=== PATIENT | female | born 1945 | race Caucasian/White ===

== ENCOUNTER 2016-12-22 11:28 | Emergency (ER) | payer OTHER ==
[~2016-12-22] VITALS: Ht 165.1 cm; Wt 68.0 kg
--- NOTE | 2016-12-22 12:25 | ED NECK/BACK PAIN COMPLAINT ---
History of Present Illness General Chief Complaint: General Adult Stated Complaint: TEST FOR LYME DISEASE Source: patient Exam Limitations: no limitations Vital Signs & Intake/Output Vital Signs & Intake/Output Vital Signs Date Time Temp Pulse Resp B/P B/P Pulse O2 O2 Flow FiO2 Mean Ox Delivery Rate 12/22 1135 98.6 85 16 182/107 95 Room Air Allergies Coded Allergies: MDX - PCN (penicillin) (PCN (PENICILLIN)) (SWELLING 05/24/16) Triage Note: 71 Y/O FEMALE STATES "MY DOCTOR TOLD ME TO COME HERE FOR BLOODWORK AND MEDICATION". STATES SHE WAS DIAGNOSED WITH LYME DISEASE 3-4 YEARS AGO AND HAS BEEN HAVING SYMPTOMS SINCE YESTERDAY: "HEADACHE, MY JOINTS HURT, MY BODY ACHES, I HAVE THE LYME FOG". TOOK ADVIL THIS AM WITH NO RELIEF. Triage Nurses Notes Reviewed? yes HPI: Patient presents for concern of Lyme disease symptoms. Patient states that she has been having neck pain and "brain fogginess" for an unclear time course. Patient states that she was treated years ago for Lyme disease but feels that her current symptoms are similar to symptoms she suffered previously. Patient has had symptom episodes annually but denies any known tick bites since her prior treatment. Past History Travel History Traveled to [place] past 21 day No Medical History Any Pertinent Medical History? 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 No Review of Systems Review of Systems Constitutional: Reports: no symptoms. Eyes: Reports: no symptoms. Ears, Nose, Throat, Mouth: Reports: no symptoms. Respiratory: Reports: no symptoms. Cardiovascular: Reports: no symptoms. Gastrointestinal/Abdominal: Reports: no symptoms. Musculoskeletal: Reports: see HPI. Skin: Reports: no symptoms. Neurological/Psychological: Reports: see HPI. All Other Systems: Reviewed and Negative Physical Exam Physical Exam Neck: SEE BELOW Comments: Gen.: Well-nourished, well-developed, no acute respiratory distress. Head: Normocephalic, atraumatic. Eyes: Normal inspection bilaterally Ears: Normal inspection bilaterally Nose: Normal inspection Throat/mouth : Moist mucosa Neck: Supple, full range of motion, no goiter Heart: Regular rate and rhythm, no murmurs rubs or gallops Lungs: Clear to auscultation bilaterally with normal air entry Chest: Nontender Back: Normal range of motion Abdomen: Soft, nontender, nondistended, normal bowel sounds Extremities: Normal range of motion grossly, equal radial pulses, no cyanosis clubbing or edema Neurologic: Cranial nerves grossly intact, speech is clear Skin: warm and dry Psychiatric: Calm, cooperative, no apparent delusions or hallucinations Progress Differential Diagnosis: ARTHRITIS,ARTHRALGIAS, AUTOIMMUNE DISEASE Plan of Care: Orders Procedure Date/time Status LYME TITRE 12/22 1245 Active Departure Departure Disposition: HOME OR SELF CARE Condition: Stable Clinical Impression Primary Impression: Arthralgia Qualifiers: Joint pain location: unspecified Qualified Code: M25.50 - Pain in unspecified joint Secondary Impressions: Malaise Referrals: SANTA ANDERSON,SADI Zimmerman (PCP/Family) Additional Instructions: Please let your primary care physician know about this emergency department visit and treatment plan including Lyme test sent. This should be followed up and treated accordingly. Otherwise return if any concerns or sudden worsening. Ibuprofen 600 mg every 6 hours as needed for muscle aches or joint pain. Departure Forms: Customer Survey General Discharge Information
[2016-12-22 12:59] VITALS: BP 161/79
== END 2016-12-22 13:00 ==
LOC: ERH 11:28
DX: M25.50 Pain in unspecified joint (principal)
CPT/HCPCS: 86618